=== PATIENT | female | born 1965 | race African-American/Black ===

== ENCOUNTER 2018-03-13 22:02 | Emergency (ER) | payer BC ==
[~2018-03-13] VITALS: Ht 162.6 cm; Wt 83.0 kg
[2018-03-13 22:05] VITALS: BP 145/93
--- NOTE | 2018-03-13 22:20 | NUR ---
Pt BIBSELF FROM HOME C/O MID-LOWER PELVIC PAIN NON-RADIATING. Pt STATES THAT HER URINE SMELLS FOUL AND LOOKS CLOUDY AND HAS PAIN UPON URINATION. Pt DENIES HEMATURIA. DENIES N/V/D. Pt IS AFEBRILE. Pt IS WAITING COMFORTABLY IN BED. NO S/S OF ACUTE DISTRESS OR SOB NOTED. Pt SEEN BY .
[2018-03-13 23:22] LABS: APPEARANCE,URINE CLEAR (CLEAR); BILIRUBIN,URINE NEGATIVE (NEGATIVE); BLOOD, URINE 2+ Ery/uL (NEGATIVE); COLOR,URINE YELLOW (YELLOW); KETONES,URINE 1+ (NEGATIVE); LEUKOCYTE ESTERASE ,URINE 2+ (NEGATIVE); NITRITE, URINE POSITIVE (NEGATIVE); PROTEIN,URINE 1+ mg/dl (NEGATIVE); UGLUCOSE NEGATIVE (NEGATIVE); UROBILINOGEN,URINE 0.2 EU/dL (0.2)
[2018-03-13] MEDS ORDERED: CEPHALEXIN MONOHYDRATE 500 MG CAPSULE PO ONE (23:45)
[2018-03-13] MEDS ORDERED: PHENAZOPYRIDINE HCL 200 MG TABLET ONE (23:46)
[2018-03-13 23:52] LABS: BACTERIA,URINE Many /HPF (None Seen)
[2018-03-13 23:53] LABS: SQUAMOUS EPITHELIAL CELL,UR Moderate /HPF (None Seen); WBC,URINE 21-50 /HPF (0-3)
[2018-03-14] MEDS ORDERED: PHENAZOPYRIDINE HCL 200 MG TABLET PO ONE
[2018-03-14] MEDS ORDERED: CEPHALEXIN MONOHYDRATE 500 MG CAPSULE PO ONE
== END 2018-03-13 23:53 | disposition home or self-care (01) ==
LOC: ER 22:07
DX: N39.0 Urinary tract infection, site not specified (principal); I10 Essential (primary) hypertension
CPT/HCPCS: 81000-TC; 87086-TC; 87186-TC; A4606; Z7610